=== PATIENT | male | born 1975 | race African-American/Black ===

== ENCOUNTER 2025-02-01 14:04 | Emergency (ER) | payer SELFPAY ==
[~2025-02-01] VITALS: Ht 177.8 cm; Wt 82.0 kg
[2025-02-01 14:11] VITALS: O2SAT 99
[2025-02-01] MEDS: KETOROLAC 30MG/ML VIAL IM ONE (15:16)
[2025-02-01] MEDS: SUMATRIPTAN SUCCINATE 6MG/0.5ML VIAL SUBCUT ONE (16:02)
[2025-02-01] MEDS ORDERED: SUMA11AE2 BOTHNSTRLS (16:44)
[2025-02-01] MEDS ORDERED: KETO10TA2 MT (16:44)
[2025-02-01 16:55] VITALS: BP 123/82; PULSE 61; RESP 18; TEMP 36.4; O2SAT 99
== END 2025-02-01 16:56 | disposition home or self-care (01) ==
LOC: ER 14:04
DX: R51.9 Headache, unspecified (principal); Z79.899 Other long term (current) drug therapy
CPT/HCPCS: 96372; 99284; J1885; J3030; Z7610 ×3